=== PATIENT | female | born 1960 | race American Indian/Alaskan Native ===

== ENCOUNTER 2016-10-26 16:02 | Outpatient (CLI) | payer MEDICAID | END 2016-10-26 16:03 | disposition home or self-care (01) | LOC: LABHHL 16:02 | PROVIDERS: ATTEND Internal Medicine Gastroenterology | DX: Z12.11 Encounter for screening for malignant neoplasm of colon (principal); K21.9 Gastro-esophageal reflux disease without esophagitis; R10.13 Epigastric pain; R13.10 Dysphagia, unspecified; K30 Functional dyspepsia | CPT/HCPCS: 88305; 88342 ==